=== PATIENT | female | born 1995 | race Two or more races ===

== ENCOUNTER 2021-01-30 10:57 | Emergency (ER) | payer BC ==
[~2021-01-30] VITALS: Ht 157.5 cm; Wt 77.1 kg
--- NOTE | 2021-01-30 11:06 | NUR ---
THE PATIENT IS BIB FAMILY MEMBER FOR C/O ABDOMINAL CRAMPING X 3 WEEKS, TESTED POSITIVE TO TEST AT HOME X 2. DENIES NAUSEA/VOMITING AT THIS TIME. IN ROOM AIR AND DENIES SOB. RESPIRATION REGULAR AND UNLABORED. WILL CONTINUE TO MONITOR THE PATIENT.
--- NOTE | 2021-01-30 11:12 | NUR ---
TO ER BED 4 AWAITING MD FUENTES,URINE SPECIMEN COLLECTED
--- NOTE | 2021-01-30 11:34 | NUR ---
POLYMERIZATION SUPERVISOR AT BEDSIDE FOR BLOOD DRAW. URINE SENT TO LAB.
[2021-01-30 11:46] LABS: BASOPHILS # (AUTO) 0.1 K/uL (0.0-0.2); BASOPHILS % (AUTO) 0.8 % (0.0-2.0); EOSINOPHILS % (AUTO) 0.1 % (0.0-6.0); HEMATOCRIT 39 % (33-45); HEMOGLOBIN 13.3 g/dL (11.5-14.8); LYMPHOCYTES % (AUTO) 20.3 % (20.0-44.0); MEAN CORPUSCULAR HGB CONC 34 g/dl (31.0-36.0); MEAN CORPUSCULAR VOLUME 91 fL (82-100); MONOCYTES # (AUTO) 0.6 K/uL (0.1-1.30); MONOCYTES % (AUTO) 5.8 % (2.0-12.0); NEUTROPHILS # (AUTO) 7.2 K/uL (1.8-8.9); PLATELET COUNT (AUTO) 309 K/uL (150-450); RED BLOOD CELL COUNT(AUTO) 4.29 MIL/uL (4.0-5.2); WHITE BLOOD COUNT (AUTO) 9.8 K/uL (4.3-11.0)
[2021-01-30 11:53] LABS: BILIRUBIN,URINE Negative (NEGATIVE); COLOR,URINE YELLOW (YELLOW); LEUKOCYTE ESTERASE ,URINE Negative (NEGATIVE); NITRITE, URINE Negative (NEGATIVE); PH,URINE 7.5 (5.0-8.0); PROTEIN,URINE Negative (NEGATIVE); UGLUCOSE Negative (NEGATIVE); UROBILINOGEN,URINE 0.2 EU/dL (0.2)
[2021-01-30 11:54] LABS: CALCIUM, SERUM 8.9 mg/dL (8.5-10.1); CREATININE 0.6 mg/dL (0.6-1.3); POTASSIUM 3.8 mmol/L (3.5-5.1)
--- NOTE | 2021-01-30 11:59 | NUR ---
US TECH AT BEDSIDE FOR EVAL.
[2021-01-30 12:44] LABS: BACTERIA,URINE None seen /HPF (None Seen); WBC,URINE 0-2 /HPF (0-3)
[2021-01-30 12:48] VITALS: BP 124/84
--- NOTE | 2021-01-30 12:48 | NUR ---
Patient a/ox4, breathing even and unlabored, gave copies of lab results. Patient discharged to home in stable condition. Written and verbal after care instructions given. Patient verbalizes understanding of instruction.
== END 2021-01-30 12:49 | disposition home or self-care (01) ==
LOC: ER 10:57
DX: O99.511 Diseases of the respiratory system complicating pregnancy, first trimester (principal); Z3A.01 Less than 8 weeks gestation of pregnancy
CPT/HCPCS: 36415; 76856-TC; 80048-TC; 81001; 84702-TC; 85025-TC; 87086-TC